=== PATIENT | male | born 1995 | race Caucasian/White ===

== ENCOUNTER 2016-10-21 14:25 | Emergency (ER) | payer SELFPAY ==
[~2016-10-21] VITALS: Ht 182.9 cm; Wt 92.9 kg
[2016-10-21 14:39] VITALS: BP 141/70
== END 2016-10-21 15:15 | disposition home or self-care (01) ==
LOC: ED 14:29
DX: T23.211A Burn of second degree of right thumb (nail), initial encounter (principal); T23.201A Burn of second degree of right hand, unspecified site, initial encounter; T31.0 Burns involving less than 10% of body surface; X10.2XXA Contact with fats and cooking oils, initial encounter; Y92.009 Unspecified place in unspecified non-institutional (private) residence as the place of occurrence of the external cause
CPT/HCPCS: 99282; 99283

== ENCOUNTER 2016-10-28 13:35 | Emergency (ER) | payer SELFPAY ==
[~2016-10-28] VITALS: Ht 182.9 cm; Wt 91.2 kg
[~2016-10-28 13:35] MED LIST: CEPH500T PO; NEOM14.24 TP
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
--- OUTSIDE RECORDS SUMMARY | 2016-10-28 13:40 | XMS REPORT | Continuity of Care Document ---
Author Author [facility] Address Unknown Phone Unavailable Allergies Active Description Code Type Severity Reaction Onset Reported/Identified Relationship to Patient Clinical Status Yes No Known Drug Allergies [id number] Drug Allergy Unknown N/ A 10/21/2016 Medications [...] Status Pt. Type Provider Facility Loc./Unit Complaint [id number] 10/21/2016 14:29:00 2016 15:15:00 DIS Outpatient CANDY RIVAS, CHAYO Bermudez [facility] ED INJURY [id number] 10/28/2016 13:36:00 [id number] 11/23/2015 03:27:00 ACT Outpatient [facility] EMS AMBULANCE REFUSAL
[2016-10-28 14:08] VITALS: BP 156/85
== END 2016-10-28 14:12 | disposition home or self-care (01) ==
LOC: ED 13:36
DX: T23.211A Burn of second degree of right thumb (nail), initial encounter (principal); T31.0 Burns involving less than 10% of body surface; X12.XXXA Contact with other hot fluids, initial encounter; Y92.009 Unspecified place in unspecified non-institutional (private) residence as the place of occurrence of the external cause
CPT/HCPCS: 99281; 99282